=== PATIENT | female | born 1960 | race Caucasian/White ===

== ENCOUNTER 2018-08-02 13:13 | Outpatient (CLI) | payer OTHER, SELFPAY ==
[2018-08-02 15:15] LABS: Magnesium 1.8 mg/dL (1.8-2.4)
== END 2018-08-02 13:33 ==
PROVIDERS: PCP Family Medicine; Visit Provider Family Medicine
DX: E83.42 Hypomagnesemia (principal)
CPT/HCPCS: 36415; 83735

== ENCOUNTER 2018-11-29 12:45 | Outpatient (CLI) | payer OTHER, SELFPAY ==
[2018-11-29 14:44] LABS: Hemoglobin A1C 5.6 % (4.5-6.2)
[2018-11-30 17:11] LABS: C-Peptide 0.8 ng/mL (1.1 - 4.4)
== END 2018-11-29 13:05 ==
PROVIDERS: PCP Family Medicine; Visit Provider Internal Medicine Endocrinology, Diabetes & Metabolism
DX: E10.9 Type 1 diabetes mellitus without complications (principal); R73.03 Prediabetes
CPT/HCPCS: 36415; 83036; 84681

== ENCOUNTER 2018-12-15 17:48 | Emergency (ER) | payer OTHER, SELFPAY ==
[2018-12-15 17:54] VITALS: BP 116/55; PULSE 71; RESP 18; TEMP 36.6; O2SAT 100
--- NOTE | 2018-12-15 18:32 | ED.GENADUL_ITS ---
Discharge Plan Disposition Patient Disposition: HOME Condition: Stable Discharge Details Chief Complaint: Orthopedic Clinical Impression: Tibial plateau fracture, left Primary Care Provider: Penny Savage ED Provider: Vicky Louise Home Meds and New Rx's Prescriptions: Continued acetylcysteine 600 MG capsule 1,200 mg PO DAILY RF: 0 Novolog Flexpen U-100 Insulin 100 UNIT/ML insulin pen 1 - 3 units SQ AC RF: 0 cholecalciferol (vitamin D3) 1,000 UNITS tablet 2,000 units PO DAILY RF: 0 magnesium L-lactate 84 mg Tablet Extended Release 168 mg PO DAILY RF: 0 ibuprofen [Ibuprofen IB] 200 mg Tablet 400 mg PO QID PRNRF: 0 Tresiba FlexTouch U-100 100 unit/mL (3 mL) Insulin Pen 6 unit SUBCUT DAILY RF: 0 Discharge Instructions Instructions: Leg Fracture (ED) Additional Instructions: Rest, ice, elevate left leg is much as possible. Alternate Motrin and Tylenol as needed and directed for pain. Use crutches for ambulation and do not bear any weight on your left leg. Call orthopedics tomorrow morning to confirm your follow-up appointment on Wednesday and to discuss with them your tibial plateau fracture. Return immediately to the emergency department any worsening or new concerning symptoms. Referrals: Gregorio Stoll MD [ [facility] STAFF PHYSICIAN] - Discharge Data Discharge Date/Time-TO BE ENTERED AT DEPARTURE: 12/15/18 19:58 Discharge Physician: Vicky Louise Medical Decision Making 58-year-old female who presents with left knee and leg pain for the past 5 days after slip and fall directly onto both knees onto the hard ground. She has had progressive pain in her entire knee and left leg, mainly in left calf since then. Denies any chest pain or shortness of breath. Vitals within normal limits. She has some pain with range of motion in her left knee but no obvious ligamentous instability. No deformity. She has 1+ pitting edema in her left leg with circumferential edema and ecchymosis, yellowish in color of the left leg. No calf tenderness. Negative Homans sign. Neurovascularly intact. Right knee normal to inspection without ligamentous instability or deformity. Will obtain a left knee and tibia/fibular x-rays. She is declining pain medication at this time. 1899 --x-rays note Curvilinear lucency below the tibial spines posteriorly, question cortical step-off in the posterior tibia. Concerning for an acute nondisplaced fracture. Findings discussed with Dr. Rodriguez - recommends knee immobilizer and crutches for tibial plateau fracture. Patient instructed to rest, ice, elevate plan weightbearing. Patient already has an appointment with Dr. Stoll on Wednesday for this leg injury. She is instructed to call orthopedics tomorrow to discuss with them her tibial plateau fracture and follow-up with her scheduled appointment as scheduled on Wednesday. Pt placed on orthopedic follow up list. Patient is declining any pain medication for home. She is instructed to alternate Tylenol Motrin, rest, ice, elevate. She is instructed return to the ER with any concerns per Medical Records Medical records reviewed: Yes I reviewed the patient's medical records. Imaging Data Radiologic Study: Radiologist's impression: XR Left Knee, 4 or more Views EXAM DATE/TIME: 12/15/2018 6:32 PM FINDINGS: Bones/joints: Curvilinear lucency below the tibial spines posteriorly, question cortical step-off in the posterior tibia. No dislocation. The patella is intact. Distal femur and fibula appear intact. New moderate joint effusion. Minimal degenerative changes medially. Soft tissues: Please see above. IMPRESSION: 1. Curvilinear lucency below the tibial spines posteriorly, question cortical step-off in the posterior tibia. Concerning for an acute nondisplaced fracture. 2. New moderate joint effusion. XR Left Knee, 4 or more Views. XR Left Tibia and Fibula, 2 Views EXAM DATE/TIME: 12/15/2018 6:48 PM FINDINGS: Bones/joints: The fibula is intact. The tibial diaphysis and distal tibia are intact. Please see knee x-rays regarding the proximal tibia. Soft tissues: Mild generalized soft tissue swelling. Benign appearing phlebolith. IMPRESSION: 1. The tibial diaphysis and distal tibia are intact. 2. Please see knee x-rays regarding the proximal tibia. Lab Data Lab results reviewed: Yes I reviewed the patient's lab results. HPI General Mode of arrival: ambulatory . Date/Time Provider Initiated Documentation: 12/15/18 17:59 . Limitations to Documentation: no limitations . Information obtained by: patient . HPI Narrative: Pt is a 58yo F who presents with L leg pain from knee down to lower leg x 5 days after slip and fall onto ice, stiking both her hands and both knees on the hard ground. She denies any significant pain in her hands or R knee or leg. She is mainly here for continued and worsening pain in L knee and L leg and with progressive increase in swelling in her entire L lower leg. She has been altering her gait due to pain and also c/o some pain with weight bearing in her L hip but denies any hip injury and states the hip pain is not significant. Pt works as a nurse here in the floor and states she has been ambulating and weight bearing on her L leg for the past few days. Related Data Home Medications Medication Instructions Recorded Confirmed Novolog Flexpen U-100 Insulin 1 - 3 units SQ AC 07/18/17 12/15/18 cholecalciferol (vitamin D3) 2,000 units PO DAILY 07/18/17 12/15/18 acetylcysteine 1,200 mg PO DAILY 08/12/17 12/15/18 Tresiba FlexTouch U-100 6 unit SUBCUT DAILY 12/15/18 12/15/18 ibuprofen [Ibuprofen IB] 400 mg PO QID PRN 12/15/18 12/15/18 magnesium L-lactate 168 mg PO DAILY 12/15/18 12/15/18 Allergies Allergy/AdvReac Type Severity Reaction Status Date / Time dicloxacillin Allergy Severe Unverified 12/15/18 18:02 General Stated Complaint: Orthopedic VALERI: 4 Review of Systems Review of Systems All systems reviewed & are unremarkable except as noted in HPI and below Constitutional Reports as per HPI, Denies chills and Denies fever(s) Eyes Denies blurry vision ENT Denies dizziness, Denies sore throat and Denies throat swelling Cardiovascular Denies chest pain and Denies dyspnea Respiratory Denies cough and Denies dyspnea Gastrointestinal Denies abdominal pain, Denies diarrhea and Denies vomiting Genitourinary Denies hematuria and Denies dysuria Musculoskeletal Denies back pain, Denies numbness and Reports other (L knee and leg pain) Integumentary/Breasts Denies lesions and Denies rash Neurologic Denies dizziness, Denies focal weakness and Denies numbness Allergic/Immunologic Denies throat swelling [facility] Medical History Diabetes Fatigue Gluteal tendinitis, left hip Hypomagnesemia Knee pain, left Low back pain Near sighted Polycystic ovaries Underweight Vitamin D deficiency Surgical History History of oral surgery (Acute) Status post hysteroscopic resection of uterine septum (Acute) Colonoscopy - MAC (09/07/17) Social History Smoking/Tobacco Use Status: Never Alcohol Intake: never Drug use: Never Substance use type: does not use Do you feel safe at home: Yes Do you feel safe in your relationship?: Yes Exam Const General: cooperative, healthy appearing and no acute distress HENMT Head: normal to inspection Mouth: oral mucosae normal Eyes General: appearance normal, both eyes and all related structures Neck Neck: normal visual inspection Resp Effort & Inspection: normal respiratory effort and able to speak in complete sentences Cardio Rate: regular rate Skin General skin exam: no rashes or lesions noted Neuro General: alert, awake and oriented x3 Motor: muscle tone normal throughout Extrem Other: L lower extremity: Mild-moderate edema with 1+ pitting and faint healing yellowish ecchymoses the entire L lower leg. Pain in L knee with ROM. No pain or laxity with valgus or varus stress. Negative anterior and posterior drawer test. Negative Shira's test. Tenderness to palpation anterior proximal lower leg. L hip normal ROM with pain or trauma. DP/PT pulses intact. No deformity. Normal ankle/foot exam. R lower extremity: Healing yellowish ecchymoses to R anterior knee/proximal leg but no pain with ROM, tenderness, ligamentous laxity, edema, or deformity. No pain with valgus or varus stress. Negative anterior/posterior drawer test. Negative Shira's test. DP/PT pulses intact. Normal ankle/foot exam. Hands B/L: no deformity, no pain with ROM, no open wounds. Psych Appearance: grossly normal Affect: normal affect Course Vital Signs Temperature 97.9 F 12/15/18 17:54 Pulse 71 12/15/18 17:54 Respiratory Rate 18 12/15/18 17:54 Blood Pressure 116/55 L 12/15/18 17:54 Pulse Oximetry 100 12/15/18 17:54 Temperature 97.9 F 12/15/18 17:54 Temperature Source Temporal Artery Scan 12/15/18 17:54 Pulse 71 12/15/18 17:54 Respiratory Rate 18 12/15/18 17:54 Respiratory Effort Non-Labored 12/15/18 18:00 Blood Pressure 116/55 L 12/15/18 17:54 Blood Pressure Position Sitting 12/15/18 17:54 Pulse Oximetry 100 12/15/18 17:54 Oxygen Delivery Method Room Air 12/15/18 17:54 Oxygen Flow Rate 0 12/15/18 17:54 Pain Level 3 12/15/18 17:54
--- NOTE | 2018-12-15 18:47 | DI.RAD_ITS ---
SYMPTOM/DIAGNOSIS: S/P FALL, PAIN LEFT KNEE: Comparison is made with 06/10/16. There is a fracture seen at the level of the tibial spines which appears to be posterior on the lateral view. There is no evidence of depression or significant displacement. A joint effusion is seen. The patella, distal femur and proximal tibia appear intact. No joint space narrowing is seen. IMPRESSION: Fracture in the region of the tibial spines. LEFT TIBIA AND FIBULA: Abnormal lucency is again noted in the region of the tibial spines posteriorly, consistent with a fracture. No additional fractures are seen distally. The ankle appears intact as visualized.
--- NOTE | 2018-12-15 19:09 | DI.VRAD_ITS ---
EXAM: XR Left Knee, 4 or more Views EXAM DATE/TIME: 12/15/2018 6:32 PM CLINICAL HISTORY: 58 years old, female; Injury or trauma; Fall; Initial encounter; Sprain or strain; Patella or knee; Left; Patient HX: S/P fall onto left knee/leg, R/O acute FX. TECHNIQUE: XR Left knee 4 or more views. COMPARISON: CR LEFT KNEE 3 VIEW COMPLETE 06/10/2016 11:02 AM FINDINGS: Bones/joints: Curvilinear lucency below the tibial spines posteriorly, question cortical step-off in the posterior tibia. No dislocation. The patella is intact. Distal femur and fibula appear intact. New moderate joint effusion. Minimal degenerative changes medially. Soft tissues: Please see above. IMPRESSION: 1. Curvilinear lucency below the tibial spines posteriorly, question cortical step-off in the posterior tibia. Concerning for an acute nondisplaced fracture. 2. New moderate joint effusion. Dictated and Authenticated by: Any Demarco MD. Ordering:ANYA Perry MD
--- NOTE | 2018-12-15 19:10 | DI.VRAD_ITS ---
EXAM: XR Left Tibia and Fibula, 2 Views EXAM DATE/TIME: 12/15/2018 6:48 PM CLINICAL HISTORY: 58 years old, female; Injury or trauma; Fall; Initial encounter; Sprain or strain; Lower leg; Left; Patient HX: S/P fall onto lt knee/leg, R/O acute FX TECHNIQUE: XR Left tibia and fibula 2 views COMPARISON: CR XR knee LT 4V AP,lat,tommie,pat 12/15/2018 6:40 PM FINDINGS: Bones/joints: The fibula is intact. The tibial diaphysis and distal tibia are intact. Please see knee x-rays regarding the proximal tibia. Soft tissues: Mild generalized soft tissue swelling. Benign appearing phlebolith. IMPRESSION: 1. The tibial diaphysis and distal tibia are intact. 2. Please see knee x-rays regarding the proximal tibia. Dictated and Authenticated by: Any Demarco MD. Ordering:ANYA Perry MD
[2018-12-15 19:54] VITALS: BP 116/55; PULSE 71; RESP 18; TEMP 36.6; O2SAT 100
== END 2018-12-15 19:58 | disposition home or self-care (01) ==
PROVIDERS: Emergency Provider Physician Assistant; PCP Family Medicine
DX: S82.142A Displaced bicondylar fracture of left tibia, initial encounter for closed fracture (principal); E11.9 Type 2 diabetes mellitus without complications; W00.0XXA Fall on same level due to ice and snow, initial encounter
CPT/HCPCS: 99284; 73564; 73590; E0114; L1830

== ENCOUNTER 2019-01-19 08:46 | Outpatient (CLI) | payer OTHER, SELFPAY ==
[2019-01-19 17:20] LABS: ALT 27 U/L (12-78); AST 19 U/L (15-37); Albumin 3.7 g/dL (3.4-5.0); Alkaline Phosphatase 68 U/L (46-116); Anion Gap 7.5 mmol/L (3-11); BUN 22 mg/dL (7-18); Bilirubin, Total 0.3 mg/dL (0.2-1.0); CO2 32.5 mmol/L (21.0-32.0); Calcium 9.1 mg/dL (8.5-10.1); Chloride 100 mmol/L (98-107); Cholesterol 320 mg/dL (50-200); Glucose 82 mg/dL (70-100); HDL Cholesterol 96 mg/dL (40-60); LDL CHOLESTEROL 183 mg/dL (<100); Magnesium 1.5 mg/dL (1.8-2.4); Potassium 3.9 mmol/L (3.5-5.1); Sodium 140 mmol/L (136-145); Total Protein 6.7 g/dL (6.4-8.2); Triglyceride 245 mg/dL (30-150)
== END 2019-01-19 09:06 ==
PROVIDERS: PCP Family Medicine; Visit Provider Family Medicine
DX: Z00.00 Encounter for general adult medical examination without abnormal findings (principal); R53.83 Other fatigue; E83.42 Hypomagnesemia; E11.9 Type 2 diabetes mellitus without complications; Z13.220 Encounter for screening for lipoid disorders
CPT/HCPCS: 36415; 80053; 80061; 83721; 83735

== ENCOUNTER 2019-04-11 00:54 | Outpatient (CLI) | payer OTHER, SELFPAY ==
--- NOTE | 2019-04-11 13:26 | DI.MAMMO_ITS ---
SYMPTOMS/DIAGNOSIS: SCREENING, Z12.39 MAMMOGRAM: Mammograms were interpreted according to the usual protocol including computer analysis with CAD system, tomosynthesis and C view imaging. The breasts are heterogeneously dense. No dominant mass or clumped microcalcification is identified in either breast. Current examination is compared with the previous examination of July 2016 and there has been no gross interval change in appearance in comparison with the previous study. CONCLUSION: No specific evidence of malignancy at this time. Routine screening examinations are suggested at yearly intervals due to the family history of breast carcinoma. Category 1, breast density category C. MQSA ASSESSMENT OF FINDINGS: Negative. Category 1. Patient will receive a letter notifying them of these results. Bi-RADS category C. The breasts are heterogeneously dense, which may obscure small masses.
== END 2019-04-11 01:14 ==
PROVIDERS: PCP Family Medicine; Visit Provider Family Medicine
DX: Z12.31 Encounter for screening mammogram for malignant neoplasm of breast (principal); Z80.3 Family history of malignant neoplasm of breast
CPT/HCPCS: 77063; 77067

== ENCOUNTER 2019-08-01 02:33 | Outpatient (CLI) | payer OTHER, SELFPAY ==
[2019-08-01 08:46] LABS: Hemoglobin A1C 5.4 % (4.5-6.2)
[2019-08-01 09:07] LABS: ALT 31 U/L (14-59); AST 23 U/L (15-37); Albumin 3.6 g/dL (3.4-5.0); Alkaline Phosphatase 56 U/L (46-116); Anion Gap 6.9 mmol/L (3-11); BUN 19 mg/dL (7-18); Bilirubin, Total 0.4 mg/dL (0.2-1.0); CO2 31.1 mmol/L (21.0-32.0); CREATININE 0.46 mg/dL (0.55-1.02); Calcium 8.9 mg/dL (8.5-10.1); Chloride 106 mmol/L (98-107); Glucose 82 mg/dL (70-100); Magnesium 1.8 mg/dL (1.8-2.4); Potassium 4.2 mmol/L (3.5-5.1); Sodium 144 mmol/L (136-145); Total Protein 6.4 g/dL (6.4-8.2)
[2019-08-01 09:21] LABS: Calculated LDL 139 mg/dL; Cholesterol 249 mg/dL (50-200); HDL Cholesterol 97 mg/dL (40-60); Triglyceride 68 mg/dL (30-150)
== END 2019-08-01 02:53 ==
PROVIDERS: PCP Family Medicine; Visit Provider Family Medicine
DX: E83.42 Hypomagnesemia (principal); E11.9 Type 2 diabetes mellitus without complications; R63.6 Underweight; Z13.220 Encounter for screening for lipoid disorders; R53.83 Other fatigue
CPT/HCPCS: 36415; 80053; 80061; 83036; 83735

== ENCOUNTER 2019-08-07 16:32 | Outpatient (REF) | payer OTHER, SELFPAY ==
--- NOTE | 2019-08-07 | PAPFT_PTH ---
PATIENT: Angelika Swan LOC: [facility]#:[id number] AGE/SX: 58/F ROOM: RE08/07/[address]: Penny Savage : 1960 BED: DIS: 08/07/2019 SPEC #: [id number] RECD: 08/08/19 12:56 STATUS: [place] #: [id number] ARGENIS: 08/07/19 00:[address]: Penny Savage DEPT: [facility] Cytology RECD BY: Zenaida Rogers Tissues: 1 - CX/ENDOCX FOR PAP SMEARS Procedures: PAP THIN PREP/UVM Screening HPV DNA PROBE Comments: [id number]
== END 2019-08-07 16:52 ==
LOC: NCHCN 16:32
PROVIDERS: PCP Family Medicine; Visit Provider Family Medicine
DX: Z00.00 Encounter for general adult medical examination without abnormal findings (principal); Z12.4 Encounter for screening for malignant neoplasm of cervix; Z11.51 Encounter for screening for human papillomavirus (HPV); Z01.419 Encounter for gynecological examination (general) (routine) without abnormal findings
CPT/HCPCS: 88142; 87624

== ENCOUNTER 2020-07-10 01:06 | Outpatient (CLI) | payer OTHER, SELFPAY ==
[2020-07-10 07:28] LABS: HCT 40.6 % (36.0-46.0); HGB 13.4 g/dL (11.2-15.7); MCV 87.9 fL (80-95); MPV 9.4 fL (8.0-11.0); Platelet Count 224 10^3/uL (130-400); RBC 4.62 10^6/uL (3.93-5.22); RDW 12.5 % (11.7-14.6); RDW-SD 40.1 fL; WBC 4.53 10^3/uL (4.4-10.8)
[2020-07-10 08:17] LABS: Hemoglobin A1C 5.4 % (<5.7)
[2020-07-10 08:34] LABS: ALT 24 U/L (14-59); AST 20 U/L (15-37); Albumin 3.8 g/dL (3.4-5.0); Alkaline Phosphatase 51 U/L (46-116); Anion Gap 3.8 mmol/L (3-11); BUN 21 mg/dL (7-18); Bilirubin, Total 0.4 mg/dL (0.2-1.0); CO2 33.2 mmol/L (21.0-32.0); CREATININE 0.54 mg/dL (0.55-1.02); Calcium 8.5 mg/dL (8.5-10.1); Calculated LDL 152 mg/dL (<100); Chloride 105 mmol/L (98-107); Cholesterol 273 mg/dL (<200); Glucose 75 mg/dL (74-106); HDL Cholesterol 105 mg/dL (40-60); Sodium 142 mmol/L (136-145); Total Protein 6.5 g/dL (6.4-8.2); Triglyceride 81 mg/dL (<150)
[2020-07-11 04:59] LABS: Vitamin D 25 Total 86.6 ng/ml (30-100)
== END 2020-07-10 01:26 ==
PROVIDERS: PCP Family Medicine; Visit Provider Family Medicine
DX: R53.83 Other fatigue (principal); E78.5 Hyperlipidemia, unspecified; E11.9 Type 2 diabetes mellitus without complications; E55.9 Vitamin D deficiency, unspecified; E83.42 Hypomagnesemia
CPT/HCPCS: 36415; 80053; 80061; 82306; 85027; 83036; 83735

== ENCOUNTER 2021-05-19 03:20 | Outpatient (CLI) | payer OTHER, SELFPAY ==
[2021-05-19 12:56] LABS: Hemoglobin A1C 5.8 % (<5.7)
== END 2021-05-19 03:21 | disposition home or self-care (01) ==
LOC: LBO 03:20
PROVIDERS: PCP Family Medicine; Visit Provider Family Medicine
DX: E83.42 Hypomagnesemia (principal); E11.9 Type 2 diabetes mellitus without complications
CPT/HCPCS: 36415; 83036; 83735

== ENCOUNTER 2021-10-20 02:15 | Outpatient (CLI) | payer OTHER, SELFPAY ==
[2021-10-20 13:18] LABS: Hemoglobin A1C 5.6 % (<5.7)
[2021-10-20 14:13] LABS: ALT 24 U/L (14-59); AST 21 U/L (15-37); Albumin 3.9 g/dL (3.4-5.0); Alkaline Phosphatase 54 U/L (46-116); Anion Gap 6.9 mmol/L (3-11); BUN 21 mg/dL (7-18); Bilirubin, Total 0.3 mg/dL (0.2-1.0); CO2 30.1 mmol/L (21.0-32.0); CREATININE 0.6 mg/dL (0.55-1.02); Calcium 8.7 mg/dL (8.5-10.1); Calculated LDL 166 mg/dL (<100); Chloride 101 mmol/L (98-107); Cholesterol 290 mg/dL (<200); Glucose 89 mg/dL (74-106); HDL Cholesterol 100 mg/dL (40-60); Potassium 3.9 mmol/L (3.5-5.1); Sodium 138 mmol/L (136-145); Total Protein 6.7 g/dL (6.4-8.2); Triglyceride 123 mg/dL (<150)
[2021-10-20 14:27] LABS: Vitamin D 25 Total 71.6 ng/mL (30-100)
== END 2021-10-20 02:16 | disposition home or self-care (01) ==
LOC: LBO 02:15
PROVIDERS: PCP Family Medicine; Visit Provider Internal Medicine Endocrinology, Diabetes & Metabolism
DX: E10.9 Type 1 diabetes mellitus without complications (principal); R53.83 Other fatigue; E78.00 Pure hypercholesterolemia, unspecified; E55.9 Vitamin D deficiency, unspecified; E78.5 Hyperlipidemia, unspecified; E83.42 Hypomagnesemia
CPT/HCPCS: 36415; 80048; 80053; 80061; 82306; 83036; 84443

== ENCOUNTER 2021-10-27 11:31 | Outpatient (CLI) | payer OTHER, SELFPAY ==
--- NOTE | 2021-10-27 | DI.RAD_ITS ---
Exam(s) XR FOOT LT COMPLETE EXAM: XR FOOT LT COMPLETE CLINICAL HISTORY: LT FOOT PAIN, M79.672. TECHNIQUE: 2D digital imaging was performed. COMPARISON: CR XR tib/fib LT from 12/15/2018 FINDINGS: There is an oblique mildly displaced fracture in the midshaft of the 5th metatarsal extending to the level of the neck. Does not extend to the level of the metatarsophalangeal joint. No other fracture s identified. There is no radiopaque foreign body. Lisfranc joint appears. There is moderate hallu x valgus incidentally noted. IMPRESSION: Fifth metatarsal fracture as described DATA REPOSITORY: RADIATION DOSE DELIVERED:
== END 2021-10-27 11:51 ==
PROVIDERS: PCP Family Medicine; Visit Provider Family Medicine
DX: M79.672 Pain in left foot (principal); S92.352A Displaced fracture of fifth metatarsal bone, left foot, initial encounter for closed fracture
CPT/HCPCS: 73630

== ENCOUNTER 2021-12-08 13:10 | Outpatient (CLI) | payer OTHER, SELFPAY ==
--- NOTE | 2021-12-08 09:45 | DI.RAD_ITS ---
Exam(s) XR FOOT LT COMPLETE EXAM: XR FOOT LT COMPLETE INDICATION: F/U L 5TH METATARSAL FX. COMPARISON: No exams were available for comparison TECHNIQUE: 2D digital imaging was performed. Three views. FINDINGS: There has been no change in the alignment of the 5th metatarsal fracture. No new fractures. Hallux valgus. DATA REPOSITORY: RADIATION DOSE DELIVERED:
== END 2021-12-08 13:11 | disposition home or self-care (01) ==
LOC: DIORS 13:10
PROVIDERS: PCP Family Medicine; Visit Provider Student in an Organized Health Care Education/Training Program
DX: S92.352A Displaced fracture of fifth metatarsal bone, left foot, initial encounter for closed fracture (principal); X58.XXXA Exposure to other specified factors, initial encounter
CPT/HCPCS: 73630

== ENCOUNTER 2022-01-08 10:27 | Outpatient (CLI) | payer OTHER, SELFPAY ==
--- NOTE | 2022-01-08 10:00 | DI.RAD_ITS ---
Exam(s) XR FOOT LT COMPLETE EXAM: XR FOOT LT COMPLETE CLINICAL HISTORY: follow up. TECHNIQUE: 2D digital imaging was performed of the left foot. Three images were obtained. AP, obli que and lateral views were obtained. COMPARISON: CR XR FOOT LT COMPLETE from 12/08/2021 FINDINGS: BONES: No change in alignment of the 5th metatarsal fracture is noted. No bony destructive lesion is seen. JOINTS: No dislocation present. There is a hallux valgus deformity. SOFT TISSUE: Soft tissue swelling adjacent to the fracture site. IMPRESSION: Stable 5th metatarsal fracture. DATA REPOSITORY: RADIATION DOSE DELIVERED:
== END 2022-01-08 10:28 | disposition home or self-care (01) ==
LOC: DIORS 10:27
PROVIDERS: PCP Family Medicine; Referring Provider Family Medicine; Visit Provider Physician Assistant Surgical
DX: M20.12 Hallux valgus (acquired), left foot; M79.89 Other specified soft tissue disorders; S92.352D Displaced fracture of fifth metatarsal bone, left foot, subsequent encounter for fracture with routine healing
CPT/HCPCS: 73630

== ENCOUNTER 2022-01-19 14:01 | Outpatient (REF) | payer OTHER, SELFPAY | END 2022-01-19 14:02 | disposition home or self-care (01) | LOC: LBN 14:01 | PROVIDERS: PCP Family Medicine; Visit Provider Student in an Organized Health Care Education/Training Program | DX: Z20.822 Contact with and (suspected) exposure to COVID-19 (principal); Z01.818 Encounter for other preprocedural examination | CPT/HCPCS: 87635 ==

== ENCOUNTER 2022-01-21 11:24 | Day surgery (SDC) | payer OTHER, SELFPAY ==
[2022-01-19 13:33] LABS: Source Nasal/Nares
[2022-01-19 17:27] LABS: COVID-19 PCR Negative (Negative)
--- NOTE | 2022-01-21 10:30 | W.ANESPRE ---
General Info Date of Service Date Performed: 01/21/22 Height: 5 ft 6 in Weight: 53.977 kg Body Mass Index (BMI): 19.2 Surgical Procedure: Operation Date: 01/21/22 14:40 Proposed Procedure Side Surgeon hilario KELLER 5th MT Left Gregorio Stoll MD Meds Allergies and Home Medications Allergies Allergy/AdvReac Type Severity Reaction Status Date / Time dicloxacillin Allergy Severe Verified 01/21/22 11:49 cashew nut AdvReac Mild Verified 01/21/22 11:49 Home Medication Medication Instructions Recorded cholecalciferol (vitamin D3) 25 2,000 units PO DAILY 07/18/17 mcg (1,000 unit) tablet insulin aspart U-100 100 unit/mL 1 - 3 units SQ AC 07/18/17 (3 mL) subcutaneous pen (Novolog Flexpen U-100 Insulin aspart) acetylcysteine 600 mg capsule 1,200 mg PO DAILY 08/12/17 ibuprofen 200 mg tablet (Ibuprofen 400 mg PO QID PRN 12/15/18 IB) insulin degludec 100 unit/mL (3 6 unit SUBCUT DAILY 12/15/18 mL) subcutaneous pen (Tresiba FlexTouch U-100 insulin) magnesium L-lactate 84 mg 168 mg PO DAILY 12/15/18 tablet,extended release estradiol 1 appful VAGINAL DIRECTED 01/19/22 Current Visit Medications: Current Medications Generic Name Dose Route Start Last Admin Trade Name Freq PRN Reason Stop Dose Admin Ringer's Solution 1,000 mls @ 80 mls/hr 01/21/22 06:00 IV 02/19/22 23:59 INFUSION JORDAN Cefazolin Sodium/Dextrose 2 gm in 50 mls @ 100 mls/hr 01/21/22 06:00 Ancef Duplex IVPB 02/19/22 23:59 PREOP JORDAN IV Miscellaneous Supplies 1 each 01/21/22 06:00 Iv Access IV 02/19/22 23:59 DIRECTED JORDAN Sodium Chloride 0 ml 01/21/22 06:00 Normal Saline Flush 10 Ml Syr IV 02/19/22 23:59 PRN PRN Sodium Chloride 0 ml 01/21/22 06:00 Normal Saline 10 Ml Vial IJ 02/19/22 23:59 DIRECTED PRN Sterile Water 0 ml 01/21/22 06:00 Water,Injection,Sterile 10 Ml Vial IJ 02/19/22 23:59 DIRECTED PRN PFSH Active Problems Active Problems: Problem Status Onset Code Injury of posterior cruciate ligament of left knee S89.92XA Encounter for screening for other viral diseases Z11.59 Sore throat J02.9 Rhinorrhea J34.89 Fracture of fifth metatarsal bone of left foot S92.352A Medical History Medical History Diabetes type I Fatigue Gluteal tendinitis, left hip Hypomagnesemia Knee pain, left Low back pain Near sighted Polycystic ovaries Underweight Vitamin D deficiency Surgical History Surgical History Colonoscopy - MAC (09/07/17) History of oral surgery Status post hysteroscopic resection of uterine septum Tobacco Smoking/Tobacco Use Status: Never Alcohol Alcohol Intake: never Substance Use Substance use: Never Substance use type: does not use Vital Signs and Lab Results Vital Signs Most Recent Vital Signs in EMR: Temp Pulse Resp BP Pulse Ox 36.3 C L 99 H 17 158/75 H 98 01/21/22 11:37 01/21/22 11:37 01/21/22 11:37 01/21/22 11:37 01/21/22 11:37 Lab Results Blood Type / Crossmatch: No Data to Display Complete Blood Count: No Data to Display Complete Metabolic Panel: No Data to Display Liver Function Panel: No Data to Display Coagulation Panel: No Data to Display Cardiac Panel: No Data to Display Arterial Blood Gas: No Data to Display Venous Blood Gas: No Data to Display Pancreas Panel: No Data to Display Thyroid Panel: No Data to Display Infectious Disease: Coronavirus (COVID-19)(PCR) Negative (Negative) 01/19/22 13:16 01/19/22 Coronavirus 2019 Source Nasal/Nares 01/19/22 13:16 01/19/22 Blood Cultures: No Data to Display Toxicology Panel: No Data to Display Anesthesia Assessment and Plan Anesthesia History Personal History: No History of Anesthesia Complications Family History: No Family History of Anesthesia Complications Exercise Tolerance Exercise Tolerance: Metabolic Equivalents>4 Cardiac & Pulmonary Exam Cardiac Exam: Normal S1/S2 Heart Sounds Pulmonary Exam: Clear Bilateral Breath Sounds Implantable Cardiac Device Does patient have a Pacemaker or an ICD?: No Airway Exam Known Difficult Airway: No Mallampati Class: 2 Mouth Opening: Normal (> 3cm) Thyromental Distance: Greater than 3 cm Neck Range of Motion: Full ROM Neck Circumference: Normal Teeth Condition: Normal Dentition ASA Classification ASA Score: ASA 2 Emergency Case?: No NPO Status NPO Status: NPO Clears >2 hours, Solids >8 hours Anesthesia Plan Resuscitation Status: Full Code Anesthesia Technique: Spinal Anesthesia Airway Planned: Natural Airway Monitors Used: Standard Monitors Preoperative Comments:: 61 yo female for left foot ORIF. Sig PMHx: DM1 (a1C 5.6), never smoker,
--- NOTE | 2022-01-21 10:53 | PDOC.DSDIS_ITS ---
Discharge Plan Disposition Patient Disposition: HOME Condition: Good Discharge Details Reason For Visit: left foot 5th metatarsal ORIF Attending Provider: Gregorio Stoll Primary Care Provider: Penny Savage Home Meds and New Rx's Prescriptions: Continued acetylcysteine 600 MG capsule 1,200 mg PO DAILY 0RF insulin aspart U-100 [Novolog Flexpen U-100 Insulin] 100 UNIT/ML insulin pen 1 - 3 units SQ AC 0RF cholecalciferol (vitamin D3) 1,000 UNITS tablet 2,000 units PO DAILY 0RF magnesium L-lactate 84 mg Tablet Extended Release 168 mg PO DAILY 0RF ibuprofen [Ibuprofen IB] 200 mg Tablet 400 mg PO QID PRN0RF Tresiba FlexTouch U-100 100 unit/mL (3 mL) Insulin Pen 6 unit SUBCUT DAILY 0RF estradiol 0.01 % (0.1 mg/gram) cream 1 appful VAGINAL DIRECTED 0RF Discharge Instructions Additional Instructions: ORIF Discharge Instructions Activity: 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 You should keep the leg elevated as much as possible. You may wiggle your toes and move your hip and knee. Dressings: You should keep your boot clean and dry. Do NOT get wet or dirty. If you have issues, please call the office at [phone] or the hospital after hours. Medications: - You should take Tylenol and Ibuprofen around the clock for baseline pain. Follow-up: 2 weeks Referrals: Gregorio Stoll MD [ [facility] STAFF PHYSICIAN] - Equipment/Supplies: Partial Weight Bearing Crutches Activity:: Activity as Tolerated Remove Dressings/Wound Care:: 72 hours Shower/Bathe:: 72 hours Diet:: As Tolerated Discharge Orders Discharge Orders: Discharge Order (Routine); Ordered 01/21/22 Ordered By: Kallie Buchanan DS: Diagnosis Discharge Diagnosis (1) Fracture of fifth metatarsal bone of left foot: Status: Acute
[2022-01-21 11:37] VITALS: BP 158/75; PULSE 99; RESP 17; TEMP 36.3; O2SAT 98
[2022-01-21] MEDS: Lactated Ringers 1,000 ML 80 ML IV (11:52)
[2022-01-21 12:18] VITALS: BMI 19.2
[2022-01-21] MEDS: ceFAZolin 2 GM/50 ML BAG IVPB (13:04)
[2022-01-21] MEDS: Bupivacaine 0.25% Pres-Free 30 ML VIAL (13:49)
--- NOTE | 2022-01-21 13:51 | DI.RAD_ITS ---
Exam(s) XR FOOT LT LIMITED EXAM: XR FOOT LT LIMITED CLINICAL HISTORY: LEFT 5TH MT FRACTURE, DELAYED HEALING TECHNIQUE: 2D and realtime digital imaging was performed. COMPARISON: CR XR FOOT LT COMPLETE from 01/08/2022 FINDINGS: C-arm fluoroscopy utilized by Dr. Stoll during open reduction internal fixation of fracture of the 5th metatarsal. Hard copies show plate and screw fixation of the fracture fragments. IMPRESSION: RADIATION DOSE DELIVERED: kristine Chaney=0.19 mGy Total DLP
[2022-01-21 14:09] VITALS: BP 122/67; PULSE 91; RESP 18; TEMP 36.6; O2SAT 100
[2022-01-21 14:41] VITALS: BP 119/57; PULSE 78; RESP 16; TEMP 37; O2SAT 99
--- NOTE | 2022-01-21 14:45 | W.ANESPOSTOP ---
Postoperative Evaluation Date, Time and Location Date Performed: 01/21/22 Time Performed: 14:45 Patient Location: Day Surgery Unit Vital Signs Most Recent Imported Vital Signs: Most Recent Vital Signs Temp Pulse Resp BP Pulse Ox 36.6 C 91 H 18 122/67 100 01/21/22 14:09 01/21/22 14:09 01/21/22 14:09 01/21/22 14:09 01/21/22 14:09 Pain Score Most Recent Pain Score: Most Recent Pain Score Pain Level 0 01/21/22 14:09 Assessment Mental Status: Awake (Alert & Oriented to Patient Baseline) Airway and Respiratory Function: Patent airway with normal (patient baseline) respiratory exam Cardiovascular Function: Hemodynamically Stable Hydration Status: Adequately Hydrated Nausea & Vomiting: No Nausea or Vomiting Pain: Pt. Denies Any Pain Peripheral Nerve Block: Patient did not receive a nerve block
--- NOTE | 2022-01-21 14:53 | NUR.NOTE ---
PAUL wrapped released. PPP palbable. Color returned spontaneously. PAUL wrap replaced with less tension. Nursing Note:
--- NOTE | 2022-01-21 14:59 | NUR.NOTE ---
Hydroculator pack placed under feet. Nursing Note:
[2022-01-21] MEDS: Acetaminophen 500 MG TAB 1000 MG PO (16:12)
--- NOTE | 2022-01-21 21:32 | W.PM.OP ---
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 This was about 3 months ago. She has continued to have pain without healing on the x-ray and with some motion at the fracture site. Given these findings, I offered operative fixation of this fifth metatarsal fracture with nonunion. Findings: There is a nonunion of the fifth metatarsal fracture. There appear to be may be some early healing of the very proximal aspect but there is no healing at the distal aspect fracture and significant comminution which was not expected based on the x-rays. The bone was very soft in the metaphyseal region of the fifth metatarsal of the distal fracture fragment. Therefore, I was unable to produce any lag type technique but was able to stabilize the fracture with a plate placed just proximal to the metatarsal head. This provided good stability. Procedure Description: Nevin was greeted in the preoperative holding area. Her identity was confirmed the correct site was identified and marked. The consent was reviewed the patient and signed. History physical was updated. He was taken to the operating room and a spinal anesthetic was administered. She was then placed in the supine position. All bony promises well-padded. The left leg was placed onto a bump. Prophylactic antibiotics in the form of cefazolin were. A timeout was performed for safe surgery. I then made a longitudinal incision over the dorsal lateral aspect of the fifth metatarsal. This extended from the MTP joint down to the proximal aspect of the metatarsal. This is taken down sharply the skin but then blunt dissection was used identify the interval of only periosteum about the dorsal lateral surface of the fifth metatarsal. The periosteum was incised along the length of the fifth metatarsal and the fracture was exposed. Sawant elevator was utilized to subperiosteally dissect the fracture site. The oblique fracture was easily identifiable. There is seem to be some early healing of the very proximal aspect of the fracture but the fracture line was well evident and mobile distally. When I went to place a retractor around the medial surface of the fifth metatarsal the dorsal bone of the distal fragment crumbled. More gentle dissection was then carried along the distal aspect of the metatarsal which showed significant softening of the bone dorsally with some comminution. I still continued to free of the fracture fragments and recannulated the fifth metatarsal with a curette. However, I was unable to find a solid piece of distal fracture fragment of which to lag or secure otherwise. The bone laterally and plantarly and somewhat plantar medially of the distal aspect of fifth metatarsal still appear to be good it was mainly the dorsal surface which had notable comminution and softening. Therefore, at this point I regained reduction and stabilized with a single K wire. This provided excellent stability of the fracture fragments. Therefore continued with of a low-profile 2.7 mm locking plate. I selected a T-type plate which provide 2 screws and distal segment 2 screws in the shaft. This was fitted onto the bone in a dorsolateral position. I then placed a single nonlocking shaft screw to bring the plate down to the shaft bone. I then provided a dorsal directed pressure with a plantar directed pressure against the distal aspect the plate securing the distal bony fragment to the plate surface. While this was being held I placed a single locking screw. The second locking screw in the distal segment was then placed. The screws were placed to be hopefully within the cortex plantarly but not through it so as to avoid any pressure points. With these placed I then checked an x-ray to ensure that the alignment is still preserved. Furthermore I perform some stability testing and there is no fracture motion. Therefore I continue with a second nonlocking screws in the shaft. This excellently reduced and secured the plate down to bone. Once again range of motion of the toe was tested. Also manually manipulate the distal fragment which showed no signs of motion. Once again, final x-rays were obtained to ensure that the screws were appropriately sized. The more proximal screw appeared to be long at 14 mm but when replaced with a 12 mm screw it lost its purchase and therefore the 14 mm screw was re-placed. The wounds were thoroughly irrigated. Surgical site was anesthetized 0.25% bupivacaine. The deep periosteal and fascial layer was then closed over the plate using 0 Vicryl. The deeper tissues were closed with 3-0 Vicryl. The skin was closed with a running 4-0 Monocryl in subcuticular fashion reinforced with skin glue. A dressing of gauze and Hayes wrap was applied. Nevin will be heel weightbearing only in a boot. She will follow-up in 2 weeks for wound check and evaluation. Most likely will continue with limited weightbearing for an additional 2 weeks after that point and then slowly progress from there. At end the case all counts are correct. She is transferred back to the same-day surgery in stable condition.
== END 2022-01-21 16:47 | disposition home or self-care (01) ==
LOC: SUR 11:25
PROVIDERS: PCP Family Medicine; Visit Provider Student in an Organized Health Care Education/Training Program
PROC: (CPT 28485; principal; 2022-01-21 14:30)
DX: S92.352A Displaced fracture of fifth metatarsal bone, left foot, initial encounter for closed fracture; X58.XXXA Exposure to other specified factors, initial encounter; E10.9 Type 1 diabetes mellitus without complications; E55.9 Vitamin D deficiency, unspecified; R63.6 Underweight; Z68.1 Body mass index [BMI] 19.9 or less, adult
CPT/HCPCS: 28485; 73620; J0690; J1100; J1885; J2001; J2405; J2704

== ENCOUNTER 2022-02-02 13:26 | Outpatient (CLI) | payer OTHER, SELFPAY ==
--- NOTE | 2022-02-02 12:30 | DI.RAD_ITS ---
Exam(s) XR FOOT LT COMPLETE EXAM: XR FOOT LT COMPLETE CLINICAL HISTORY: 1st post op ORIF L 5th metatarsal. TECHNIQUE: 2D digital imaging was performed. Three views. COMPARISON: CR XR FOOT LT COMPLETE from 01/08/2022 XA XR FOOT LT LIMITED from 01/21/2022 FINDINGS: Fixation plate is again noted in the 5th meta tarsal for fracture fixation. There has been no change in fracture or hardware alignment. No new abnormalities. DATA REPOSITORY: RADIATION DOSE DELIVERED:
== END 2022-02-02 13:27 | disposition home or self-care (01) ==
LOC: DIORS 13:27
PROVIDERS: PCP Family Medicine; Referring Provider Family Medicine; Visit Provider Student in an Organized Health Care Education/Training Program
DX: S92.352D Displaced fracture of fifth metatarsal bone, left foot, subsequent encounter for fracture with routine healing (principal); X58.XXXD Exposure to other specified factors, subsequent encounter
CPT/HCPCS: 73630

== ENCOUNTER 2022-02-12 02:06 | Outpatient (CLI) | payer OTHER, SELFPAY ==
[2022-02-12 10:11] LABS: Creatinine,Urine 62.24 mg/dL
[2022-02-12 10:16] LABS: Microalb ug/mg Crea 5.9 ug/mg Cr
[2022-02-12 10:58] LABS: Vitamin B12 785 pg/mL (193-986)
== END 2022-02-12 02:07 | disposition home or self-care (01) ==
LOC: LBO 02:06
PROVIDERS: PCP Family Medicine; Visit Provider Family Medicine
DX: E53.8 Deficiency of other specified B group vitamins (principal); E11.9 Type 2 diabetes mellitus without complications
CPT/HCPCS: 36415; 82043; 82565; 82570; 82607

== ENCOUNTER 2022-02-16 10:14 | Outpatient (CLI) | payer OTHER, SELFPAY ==
--- NOTE | 2022-02-16 10:00 | DI.RAD_ITS ---
Exam(s) XR FOOT LT LIMITED EXAM: XR FOOT LT LIMITED CLINICAL HISTORY: follow up. TECHNIQUE: 2D digital imaging was performed. Two images were obtained. AP and lateral views were ob tained. COMPARISON: CR XR FOOT LT COMPLETE from 02/02/2022 FINDINGS: BONES: There are stable post operative changes present. No new fracture or dislocation. JOINTS: The joint spaces are well maintained. No joint effusion is present. SOFT TISSUE: Normal. IMPRESSION: Stable postoperative changes. DATA REPOSITORY: RADIATION DOSE DELIVERED:
== END 2022-02-16 10:15 | disposition home or self-care (01) ==
LOC: DIORS 10:14
PROVIDERS: PCP Family Medicine; Referring Provider Family Medicine; Visit Provider Physician Assistant Surgical
DX: S92.352D Displaced fracture of fifth metatarsal bone, left foot, subsequent encounter for fracture with routine healing (principal); X58.XXXD Exposure to other specified factors, subsequent encounter
CPT/HCPCS: 73620

== ENCOUNTER 2022-02-23 11:33 | Outpatient (CLI) | payer OTHER, SELFPAY | END 2022-02-23 11:34 | disposition home or self-care (01) | LOC: LBO 11:34 | PROVIDERS: PCP Family Medicine; Visit Provider Obstetrics & Gynecology ==

== ENCOUNTER 2022-02-24 16:03 | Outpatient (CLI) | payer OTHER, SELFPAY ==
[2022-02-24 16:47] LABS: FREE T4 1.02 ng/dL (0.76-1.46); TSH 2.14 uIU/mL (0.36-3.74)
[2022-02-24 22:24] LABS: T3,Free 2.8 pg/mL (2.8-5.3)
[2022-02-24 23:48] LABS: Thyroglobulin Antibody <15 U/mL (<=60); Thyroperoxidase Antibody <28 U/mL (<=60)
== END 2022-02-24 16:04 | disposition home or self-care (01) ==
LOC: LBO 16:04
PROVIDERS: PCP Family Medicine; Visit Provider Obstetrics & Gynecology
DX: R53.83 Other fatigue (principal)
CPT/HCPCS: 36415; 86376; 84439; 84443; 84481

== ENCOUNTER 2022-03-23 10:41 | Outpatient (CLI) | payer OTHER, SELFPAY ==
--- NOTE | 2022-03-23 10:20 | DI.RAD_ITS ---
Exam(s) XR FOOT LT LIMITED EXAM: XR FOOT LT LIMITED CLINICAL HISTORY: s/p ORIF. TECHNIQUE: 2D digital imaging was performed. Two images were obtained. AP and lateral views were ob tained. COMPARISON: CR XR FOOT LT LIMITED from 02/16/2022 FINDINGS: BONES: There are stable post operative changes present. No new fracture or dislocation. JOINTS: The joint spaces are well maintained. No joint effusion is present. SOFT TISSUE: Normal. IMPRESSION: Stable postoperative changes. DATA REPOSITORY: RADIATION DOSE DELIVERED:
== END 2022-03-23 10:42 | disposition home or self-care (01) ==
LOC: DIORS 10:42
PROVIDERS: PCP Family Medicine; Referring Provider Family Medicine; Visit Provider Student in an Organized Health Care Education/Training Program
DX: S92.352D Displaced fracture of fifth metatarsal bone, left foot, subsequent encounter for fracture with routine healing (principal); X58.XXXD Exposure to other specified factors, subsequent encounter
CPT/HCPCS: 73620

== ENCOUNTER → 2022-04-10 00:48 | Outpatient (CLI) | payer OTHER, SELFPAY ==
--- NOTE | 2022-04-10 09:49 | DI.DEXA_ITS ---
Exam(s) XR DEXA BONE DENSITY W/WO BERNICE EXAM: XR DEXA BONE DENSITY W/WO BERNICE CLINICAL HISTORY: MENOPAUSE, Z78.0 TECHNIQUE: Pixel Qi C densitometer analysis of left hip, lumbar spine and left forearm. COMPARISON: 2009 FINDINGS: Lateral view of the thoracic and lumbar spine shows no evidence of compression fractures. Bone mineral density measurements of the lumbar spine correspond to a total T-score of -2.0, in the osteopenic range. This represents a 10.5 percent decrease from prior. Bone mineral density measurements of the left hip correspond to a total T-score of -1.8. The femora l neck T-score is -2.5, in the osteoporotic range. This represents a 12.0 percent decrease from / .. The left forearm bone mineral density measurements correspond to a T-score of the distal 3rd of -0.3, in the normal range. This represents a 6.1 percent decrease from prior. . IMPRESSION: Osteopenia of the lumbar spine. Borderline osteoporosis of the left hip. Normal bone mineral densit y of the left forearm.
== END ==
PROVIDERS: PCP Family Medicine; Visit Provider Family Medicine
DX: M85.88 Other specified disorders of bone density and structure, other site (principal); Z78.0 Asymptomatic menopausal state
CPT/HCPCS: 77080

== ENCOUNTER 2022-04-23 10:54 | Outpatient (CLI) | payer OTHER, SELFPAY ==
--- NOTE | 2022-04-23 08:30 | DI.RAD_ITS ---
Exam(s) XR FOOT LT LIMITED EXAM: XR FOOT LT LIMITED CLINICAL HISTORY: f/u 5th metatarsal fx. TECHNIQUE: 2D digital imaging was performed. COMPARISON: CR XR FOOT LT LIMITED from 03/23/2022 FINDINGS: Two views Again noted is a fusion plate across healing fracture of the 5th meta tarsal. Appearance is stable. No loosening. No radiographic evidence of osteomyelitis. Hallux valgus again noted. No additional fractures evident. IMPRESSION: DATA REPOSITORY: RADIATION DOSE DELIVERED:
== END 2022-04-23 10:55 | disposition home or self-care (01) ==
LOC: DIORS 10:55
PROVIDERS: PCP Family Medicine; Referring Provider Family Medicine; Visit Provider Student in an Organized Health Care Education/Training Program
DX: S92.352D Displaced fracture of fifth metatarsal bone, left foot, subsequent encounter for fracture with routine healing (principal); X58.XXXA Exposure to other specified factors, initial encounter
CPT/HCPCS: 73620

== ENCOUNTER → 2022-08-31 02:30 | Outpatient (CLI) | payer OTHER, SELFPAY ==
--- NOTE | 2022-08-31 | DI.MAMMO_ITS ---
Exam(s) MAMMO SCREENING EXAM: MAMMO SCREENING CLINICAL HISTORY: SCREENING FOR BREAST CANCER Z12.31 TECHNIQUE: Mammograms were interpreted according to the usual protocol including computer analysis w reportbrain CAD system, tomosynthesis and C-view imaging. COMPARISON: 2015 and 2018 FINDINGS: The breasts are composed of scattered fibroglandular densities, Breast Density category B. No suspicious masses or suspicious microcalcifications are seen. No skin thickening or abnormal axillary lymph nodes are seen. There has been no significant change from prior exams. IMPRESSION: BI-RADS Category 1, Negative mammogram Yearly screening mammography is recommended. Breast Density - Category B, scattered fibroglandular densities. A negative radiographic report should not delay biopsy if a dominant or clinically suspicious mass is present. Up to ten percent of cancers are not identified on mammography. A negative report may reinforce clinical impression. Adenosis and dense breasts may obscure an underlying neoplasm. False positive reports average 6 to 10%. Patient will receive a letter notifying them of these results.
== END ==
PROVIDERS: PCP Family Medicine; Visit Provider Family Medicine
DX: Z12.31 Encounter for screening mammogram for malignant neoplasm of breast (principal)
CPT/HCPCS: 77063; 77067

== ENCOUNTER 2022-10-09 10:18 | Outpatient (CLI) | payer OTHER, SELFPAY ==
--- NOTE | 2022-10-09 10:00 | DI.RAD_ITS ---
Exam(s) XR FOOT LT COMPLETE EXAM: XR FOOT LT COMPLETE INDICATION: L foot fx. COMPARISON: CR XR FOOT LT LIMITED from 04/23/2022 TECHNIQUE: 2D digital imaging was performed. Three views. FINDINGS: A plate is again noted along the distal aspect of the 5th metatarsal. The fracture is no longer disc retely visible. No new abnormalities are seen. Degenerative changes and hallux valgus are again not ed. DATA REPOSITORY: RADIATION DOSE DELIVERED:
== END 2022-10-09 10:19 | disposition home or self-care (01) ==
LOC: DIORS 10:19
PROVIDERS: PCP Family Medicine; Referring Provider Family Medicine; Visit Provider Physician Assistant
DX: S92.352D Displaced fracture of fifth metatarsal bone, left foot, subsequent encounter for fracture with routine healing (principal); X58.XXXD Exposure to other specified factors, subsequent encounter
CPT/HCPCS: 73630

== ENCOUNTER 2022-11-24 01:58 | Outpatient (CLI) | payer OTHER, SELFPAY ==
[2022-11-24 08:49] LABS: Hemoglobin A1C 5.5 % (<5.7)
[2022-11-24 08:50] LABS: ALT 22 U/L (14-59); AST 21 U/L (15-37); Albumin 3.9 g/dL (3.4-5.0); Alkaline Phosphatase 53 U/L (46-116); Anion Gap 7.7 mmol/L (3-11); BUN 18 mg/dL (7-18); Bilirubin, Total 0.5 mg/dL (0.2-1.0); CO2 30.3 mmol/L (21.0-32.0); CREATININE 0.5 mg/dL (0.55-1.02); Calcium 8.9 mg/dL (8.5-10.1); Calculated LDL 131 mg/dL (<100); Chloride 105 mmol/L (98-107); Cholesterol 242 mg/dL (<200); Estimated GFR 107.31 (mL/min/1.73m2); Glucose 94 mg/dL (74-106); HDL Cholesterol 98 mg/dL (40-60); Magnesium 1.8 mg/dL (1.8-2.4); Potassium 3.9 mmol/L (3.5-5.1); Sodium 143 mmol/L (136-145); Total Protein 6.8 g/dL (6.4-8.2); Triglyceride 69 mg/dL (<150)
[2022-11-24 09:14] LABS: Vitamin D 25 Total 68.7 ng/mL (30-100)
== END 2022-11-24 01:59 | disposition home or self-care (01) ==
PROVIDERS: Visit Provider Family Medicine
DX: E11.9 Type 2 diabetes mellitus without complications (principal)
CPT/HCPCS: 36415; 80053; 80061; 82306; 83036; 83735

== ENCOUNTER 2023-02-08 03:13 | Outpatient (CLI) | payer OTHER, SELFPAY ==
[2023-02-08 13:05] LABS: Abs Immature Grans 0.01 10^3/uL (0.0-0.06); Absolute Basophil Count 0.08 10^3/uL (0.0-0.2); Absolute Eosinophil Count 0.15 10^3/uL (0.0-0.7); Absolute Lymphocyte Count 2.13 10^3/uL (1.2-3.4); Absolute Monocyte Count 0.31 10^3/uL (0.1-0.8); Absolute Neutrophil Count 2.22 10^3/uL (1.2-6.7); Basophils % 1.6; Eosinophils % 3.1; HCT 39.8 % (36.0-46.0); HGB 13.4 g/dL (11.2-15.7); Immature Grans % 0.2; Lymphocytes % 43.5; MCH 29.1 pg (27.0-33.0); MCHC 33.7 % (32.0-36.0); MCV 86 fL (80-95); MPV 9.4 fL (8.0-11.0); Monocytes % 6.3; Neutrophils % 45.3; Platelet Count 269 10^3/uL (130-400); RBC 4.61 10^6/uL (3.93-5.22); RDW 12.5 % (11.7-14.6); RDW-SD 39.4 fL
[2023-02-08 13:52] LABS: Iron 74 ug/dL (50-170); Total Iron Binding Capacity 278 ug/dL (250-450); Transferrin Sat 27 % (15-50)
[2023-02-08 14:11] LABS: Ferritin 30 ng/mL (8-252); TSH 2.37 uIU/mL (0.36-3.74)
[2023-02-08 14:57] LABS: FREE T4 1.02 ng/dL (0.76-1.46)
[2023-02-08 21:18] LABS: T3,Free 3.2 pg/mL (2.8-5.3)
[2023-02-09 10:53] LABS: Lyme Ab w Rflx to Lyme Confirm Negative (Negative)
[2023-02-10 12:05] LABS: Zinc, S 83 mcg/dL (60-106)
[2023-02-12 14:31] LABS: Galactose-alpha-1,3 IgE 0.99 kU/L (<0.70)
== END 2023-02-08 03:14 | disposition home or self-care (01) ==
PROVIDERS: PCP Family Medicine; Visit Provider Obstetrics & Gynecology
DX: R53.83 Other fatigue (principal); W57.XXXA Bitten or stung by nonvenomous insect and other nonvenomous arthropods, initial encounter; T14.8XXA Other injury of unspecified body region, initial encounter
CPT/HCPCS: 36415; 84630; 86003; 82728; 83540; 83550; 84439; 84443; 84481; 85025; 86618

== ENCOUNTER 2024-01-27 07:30 | Outpatient (CLI) | payer OTHER, SELFPAY ==
[2024-01-27 07:56] LABS: Abs Immature Grans 0.02 10^3/uL (0.0-0.06); Absolute Basophil Count 0.04 10^3/uL (0.0-0.2); Absolute Eosinophil Count 0.15 10^3/uL (0.0-0.7); Absolute Lymphocyte Count 2.13 10^3/uL (1.2-3.4); Absolute Monocyte Count 0.31 10^3/uL (0.1-0.8); Basophils % 0.8; Eosinophils % 2.9; HCT 39.3 % (36.0-46.0); Immature Grans % 0.4; Lymphocytes % 41.4; MCH 28.6 pg (27.0-33.0); MCHC 33.1 % (32.0-36.0); MCV 87 fL (80-95); MPV 9.5 fL (8.0-11.0); Neutrophils % 48.5; Platelet Count 249 10^3/uL (130-400); RBC 4.54 10^6/uL (3.93-5.22); RDW 12.8 % (11.7-14.6); RDW-SD 40.4 fL; WBC 5.15 10^3/uL (4.4-10.8)
[2024-01-27 08:36] LABS: ALT 29 U/L (14-59); AST 20 U/L (15-37); Albumin 3.8 g/dL (3.4-5.0); Alkaline Phosphatase 52 U/L (46-116); Anion Gap 6.5 mmol/L (3-11); BUN 18 mg/dL (7-18); Bilirubin, Total 0.4 mg/dL (0.2-1.0); CO2 32.5 mmol/L (21.0-32.0); CREATININE 0.5 mg/dL (0.55-1.02); Calcium 8.7 mg/dL (8.5-10.1); Chloride 103 mmol/L (98-107); Estimated GFR 106.64 (mL/min/1.73m2); Glucose 100 mg/dL (74-106); Magnesium 1.9 mg/dL (1.8-2.4); Potassium 3.7 mmol/L (3.5-5.1); Sodium 142 mmol/L (136-145); TSH 3.04 uIU/Ml (0.36-3.74); Total Protein 6.8 g/dL (6.4-8.2)
[2024-01-27 19:56] LABS: COMMENT (LAB VIEW ONLY) 77.68 mg/dL; Microalb ug/mg Crea 5.3 ug/mg Cr
[2024-01-27 20:18] LABS: Vitamin D 25 Total 65.5 ng/mL (30-100)
[2024-01-27 20:37] LABS: Calculated LDL 140 mg/dL (<100); Cholesterol 248 mg/dL (<200); HDL Cholesterol 93 mg/dL (40-60); Triglyceride 76 mg/dL (<150); Vitamin B12 608 pg/mL (193-986)
== END 2024-01-27 07:31 | disposition home or self-care (01) ==
LOC: LBO 07:34
PROVIDERS: PCP Family Medicine; Visit Provider Internal Medicine Endocrinology, Diabetes & Metabolism
DX: R53.83 Other fatigue (principal); E10.9 Type 1 diabetes mellitus without complications
CPT/HCPCS: 36415; 80053; 80061; 82306; 82043; 82570; 82607; 83036; 83735; 84443; 85025

== ENCOUNTER → 2024-04-24 01:11 | Outpatient (CLI) | payer OTHER, SELFPAY ==
--- NOTE | 2024-04-24 | DI.DEXA_ITS ---
Exam(s) XR DEXA BONE DENSITY W/WO BERNICE EXAM: XR DEXA BONE DENSITY W/WO BERNICE CLINICAL HISTORY: OTH DISRD OF BONE DENSITY AND STRUCTURE, THIGH, M85.85 TECHNIQUE: COMPARISON: CR XR DEXA BONE DENSITY W/WO BERNICE from 04/10/2022 FINDINGS: Lateral Spine Image: Unremarkable. No compression deformities identified. Left hip: Total T-Score: -1.5. This compares to -1.8 on the prior examination. Total Z-Score: -0.5 T- and Z-scores: Findings are consistent with osteopenia. Note is made of osteoporosis in the femora l neck with a T-score of -2.6. This compares to -2.5 on the prior examination. Lumbar Spine: Total T-Score: -2.3. This compares to -2.0 on the prior examination. Total Z-Score: -0.8 T- and Z-scores: The findings are consistent with osteopenia. Note is made of osteoporosis in the L4 vertebral body with a T-score of -3.0. This compares with -2.9 on the prior examination. IMPRESSION: Osteoporosis seen in the left femoral neck and the L4 vertebral body.
== END ==
PROVIDERS: PCP Family Medicine; Visit Provider Obstetrics & Gynecology
DX: M85.859 Other specified disorders of bone density and structure, unspecified thigh (principal); M85.89 Other specified disorders of bone density and structure, multiple sites; M80.852A Other osteoporosis with current pathological fracture, left femur, initial encounter for fracture; M80.08XA Age-related osteoporosis with current pathological fracture, vertebra(e), initial encounter for fracture
CPT/HCPCS: 77080

== ENCOUNTER 2024-06-09 08:40 | Outpatient (CLI) | payer OTHER, SELFPAY ==
[2024-06-09 08:16] LABS: Hemoglobin A1C 5.7 % (<5.7)
[2024-06-09 08:21] LABS: Calculated LDL 75 mg/dL (<100); Cholesterol 164 mg/dL (<200); HDL Cholesterol 75 mg/dL (40-60); TSH 3.31 uIU/Ml (0.36-3.74); Triglyceride 74 mg/dL (<150)
== END 2024-06-09 08:41 | disposition home or self-care (01) ==
LOC: LBO 08:40
PROVIDERS: PCP Family Medicine; Visit Provider Obstetrics & Gynecology
DX: R53.83 Other fatigue (principal)
CPT/HCPCS: 36415; 80061; 83036; 84443

== ENCOUNTER 2025-02-22 08:05 | Outpatient (CLI) | payer OTHER, SELFPAY ==
[2025-02-22 07:34] LABS: Abs Immature Grans 0.01 10^3/uL (0.0-0.06); Absolute Basophil Count 0.06 10^3/uL (0.0-0.2); Absolute Eosinophil Count 0.11 10^3/uL (0.0-0.7); Absolute Lymphocyte Count 2.03 10^3/uL (1.2-3.4); Absolute Monocyte Count 0.33 10^3/uL (0.1-0.8); Absolute Neutrophil Count 1.87 10^3/uL (1.2-6.7); Basophils % 1.4 %; Eosinophils % 2.5 %; HCT 41.3 % (36.0-46.0); HGB 13.7 g/dL (11.2-15.7); Immature Grans % 0.2 %; MCH 28.7 pg (27.0-33.0); MCHC 33.2 % (32.0-36.0); MCV 87 fL (80-95); MPV 9.8 fL (8.0-11.0); Monocytes % 7.5 %; Neutrophils % 42.4 %; Platelet Count 205 10^3/uL (130-400); RBC 4.77 10^6/uL (3.93-5.22); RDW 12.1 % (11.7-14.6); RDW-SD 38.8 fL; WBC 4.41 10^3/uL (4.4-10.8)
[2025-02-22 07:54] LABS: COMMENT (LAB VIEW ONLY) 101.18 mg/dL; Microalb ug/mg Crea 5.4 ug/mg Cr
[2025-02-22 07:56] LABS: Hemoglobin A1C 5.7 % (<5.7)
[2025-02-22 08:24] LABS: ALT 28 U/L (14-59); AST 23 U/L (15-37); Albumin 3.8 g/dL (3.4-5.0); Alkaline Phosphatase 94 U/L (46-116); Anion Gap 2.4 mmol/L (3-11); BUN 13 mg/dL (7-18); Bilirubin, Total 0.4 mg/dL (0.2-1.0); CO2 33.6 mmol/L (21.0-32.0); CREATININE 0.5 mg/dL (0.55-1.02); Calcium 8.7 mg/dL (8.5-10.1); Calculated LDL 69 mg/dL (<100); Chloride 103 mmol/L (98-107); Cholesterol 171 mg/dL (<200); Estimated GFR 105.98 (mL/min/1.73m2); Glucose 128 mg/dL (74-106); HDL Cholesterol 85 mg/dL (>or=50); Potassium 3.9 mmol/L (3.5-5.1); Sodium 139 mmol/L (136-145); TSH 5.36 uIU/mL (0.36-3.74); Total Protein 6.7 g/dL (6.4-8.2); Triglyceride 86 mg/dL (<150); Vitamin B12 1358 pg/mL (193-986); Vitamin D 25 Total 68 ng/mL (30-100)
== END 2025-02-22 08:06 | disposition home or self-care (01) ==
LOC: LBO 08:05
PROVIDERS: PCP Family Medicine; Visit Provider Internal Medicine Endocrinology, Diabetes & Metabolism
DX: R53.83 Other fatigue (principal); E10.9 Type 1 diabetes mellitus without complications; E55.9 Vitamin D deficiency, unspecified
CPT/HCPCS: 36415; 80053; 80061; 82306; 82043; 82570; 82607; 83036; 84443; 85025

== ENCOUNTER 2025-03-14 02:43 | Outpatient (CLI) | payer OTHER, SELFPAY ==
--- NOTE | 2025-03-14 12:26 | DI.MAMMO_ITS ---
Exam(s) MAMMO SCREENING EXAM: MAMMO SCREENING CLINICAL HISTORY: Z12.31 Screening TECHNIQUE: Bilateral full field digital CC and MLO mammographic images were obtained with 3D tomosyn thesis and utilizing computer aided detection (CAD). COMPARISON: Comparison is made with prior examinations. FINDINGS: Masses/Architectural Distortion: No suspicious masses or areas of architectural distortion are presen t. Microcalcifications: No suspicious pleomorphic-type are seen. Skin Thickening/Nipple Retraction: None. IMPRESSION: 1. No significant interval change with no specific features of malignancy noted. 2. Unless there is more urgent need, screening mammography is recommended, as per [place] guidelines. BI-RADS Category 1 - Negative Breast Density - Category B - There are scattered areas of fibroglandular density. Breast density Category C or D implies that the patient has dense breast tissue. Dense breast tissue can make it harder to find cancer on a mammogram. Dense breast tissue is also associated with an incr eased risk of breast cancer. This information about the result of the mammogram report was provided to the patient to raise their awareness. Use this report when you speak with the patient about their risks for breast cancer, which includes their family history. At that time, you may recommend additional screening tests (Ultrasoun d or MRI) as these tests may add significant information. A negative radiographic report should not delay biopsy if a dominant or clinically suspicious mass is present. Up to ten percent of cancers are not identified on mammography. A negative report may reinforce clinical impression. Adenosis and dense breasts may obscure an underlying neoplasm. False positive reports average 6 to 10%. Patient will receive a letter notifying them of these results.
== END 2025-03-14 03:03 ==
LOC: DI 02:43
PROVIDERS: PCP Family Medicine; Visit Provider Family Medicine
DX: Z12.31 Encounter for screening mammogram for malignant neoplasm of breast (principal); R92.323 Mammographic fibroglandular density, bilateral breasts
CPT/HCPCS: 77063; 77067

== ENCOUNTER 2025-04-04 04:11 | Outpatient (CLI) | payer OTHER, SELFPAY ==
[2025-04-04 13:55] LABS: Magnesium 2.0 mg/dL (1.8-2.4); TSH 2.98 uIU/mL (0.36-3.74)
== END 2025-04-04 04:12 | disposition home or self-care (01) ==
LOC: LBO 04:11
PROVIDERS: PCP Family Medicine; Visit Provider Family Medicine
DX: E55.9 Vitamin D deficiency, unspecified (principal)
CPT/HCPCS: 36415; 83735; 84439; 84443

== ENCOUNTER 2025-04-11 19:04 | Outpatient (REF) | payer OTHER, SELFPAY ==
[2025-04-11 17:00] LABS: T4 8.3 ug/dL (4.7-13.3)
[2025-04-12 18:26] LABS: T3, Total 113 ng/dL (97-169)
== END 2025-04-11 19:05 | disposition home or self-care (01) ==
LOC: NCHCN 19:04
PROVIDERS: PCP Family Medicine; Visit Provider Family Medicine
DX: R53.82 Chronic fatigue, unspecified (principal)
CPT/HCPCS: 84436; 84480

== ENCOUNTER 2025-09-20 13:25 | Outpatient (CLI) | payer OTHER, SELFPAY ==
[2025-09-29 01:27] LABS: Testosterone, Free 2.1 pg/mL (0.1-6.4)
== END 2025-09-20 13:26 | disposition home or self-care (01) ==
LOC: LBO 13:26
PROVIDERS: PCP Family Medicine; Visit Provider Nurse Practitioner
DX: R68.82 Decreased libido (principal)
CPT/HCPCS: 36415; 84402; 84403; 84270